=== PATIENT | male | born 1955 | race American Indian/Alaskan Native ===

== ENCOUNTER 2018-09-20 16:15 | Emergency (ER) | payer MEDICAID ==
[2018-09-20] MEDS ORDERED: Lidocaine 1% Inj (20ml) INFIL ONE (16:30)
[2018-09-20] MEDS ORDERED: Lidocaine Hydrochloride 5 ML INJ ONE (16:35)
[2018-09-20 16:41] VITALS: BP 163/83; PULSE 74; RESP 16; TEMP 97.3; O2SAT 99
--- NOTE | 2018-09-20 16:45 | C.PDOC ---
History Of Present Illness 63 year old male, with history of osteoarthritis, presents to ED complaining of bilateral knee pain and swelling for 2 weeks. Patient states his knees started to get swollen and developed more pain. Otherwise he denies redness or fever. Time Seen by Provider: 09/20/18 16:27 Chief Complaint (Nursing): Lower Extremity Problem/Injury History Per: Patient History/Exam Limitations: no limitations Onset/Duration Of Symptoms: Days Current Symptoms Are (Timing): Still Present Past Medical History Reviewed: Historical Data, Nursing Documentation, Vital Signs Vital Signs: Last Vital Signs Temp 97.3 F L 09/20/18 16:26 Pulse 74 09/20/18 16:26 Resp 16 09/20/18 16:26 BP 163/83 H 09/20/18 16:26 Pulse Ox 99 09/20/18 16:26 - Medical History PMH: HTN Surgical History: No Surg Hx Family History: States: No Known Family Hx - Social History Hx Tobacco Use: No Hx Alcohol Use: No Hx Substance Use: No - Immunization History Hx Tetanus Toxoid Vaccination: No Hx Influenza Vaccination: No Hx Pneumococcal Vaccination: No Review Of Systems Except As Marked, All Systems Reviewed And Found Negative. Constitutional: Negative for: Fever Musculoskeletal: Positive for: Other (bilateral knee pain and swelling) Physical Exam - Physical Exam Appears: Non-toxic, No Acute Distress Skin: Warm, Dry Head: Atraumatic, Normacephalic Eye(s): bilateral: Normal Inspection Oral Mucosa: Moist Neck: Supple Chest: Symmetrical Cardiovascular: Rhythm Regular, No Murmur Respiratory: Normal Breath Sounds, No Rales, No Rhonchi, No Wheezing Back: No Vertebral Tenderness Extremity: Normal ROM, Tenderness (diffuse tenderness to bilateral knees), No Deformity, Other (bilateral exudates on knees, no erythema) Extremity: Bilateral: Normal Color And Temperature, Normal ROM Neurological/Psych: Oriented x3, Normal Speech, Normal Motor, Normal Sensation, Normal Reflexes Gait: Steady ED Course And Treatment O2 Sat by Pulse Oximetry: 99 (RA) Pulse Ox Interpretation: Normal Procedure: Blank - Time Time Performed: 16:45 - Procedure Procedure:: Bilateral synovial fluid aspiration - Performed by: Performed by:: Attending physician - Topical: Local/Regional Anesthetic:: Lidocaine 1% - Patient Position Patient Position:: Supine - Location Location: Right, Left, Knee - Needle Size Needle Size:: 19 gauge needle - Description Discription of Procedure: 09/20/18 (20 cc of clear yellow synovial fluid aspirated from each knee and sent for analysis) - Result Result: Successful - Patient Tolerated Procedure Patient Tolerated Procedure:: Well (no bleeding) Medical Decision Making Medical Decision Making: Plan: --Labs Disposition Counseled Patient/Family Regarding: Diagnosis, Need For Followup, Rx Given - Disposition Referrals: Neal Christiansen MD [Staff Provider] - Disposition: HOME/ ROUTINE Disposition Time: 16:44 Condition: STABLE Prescriptions: Ibuprofen [Motrin] 600 mg PO TID #20 tab Methylprednisolone [Medrol Dose Pack (21 tabs)] 4 mg PO DAILY #21 mg Instructions: Osteoarthritis Forms: [facility] ([place]), General Discharge Instructions - POA Present On Arrival: None - Clinical Impression Clinical Impression: Degenerative arthritis of knee, bilateral - Scribe Statement The provider has reviewed the documentation as recorded by the Soniaibe Marcela Pruitt Provider Attestation: All medical record entries made by the Soniaibe were at my direction and personally dictated by me. I have reviewed the chart and agree that the record accurately reflects my personal performance of the history, physical exam, medical decision making, and the department course for this patient. I have also personally directed, reviewed, and agree with the discharge instructions and disposition.
[2018-09-20 16:49] LABS: FLUID TYPE SYNOVIAL FLUID
[2018-09-20 17:23] LABS: SF GROSS APPEARANCE CLOUDY (CLEAR)
[2018-09-20 20:09] LABS: SYNOVIAL FLUID MONO/MACROPHAGE 3 % (0-0)
== END 2018-09-20 16:29 | disposition home or self-care (01) ==
LOC: C.ER 16:15
DX: M17.0 Bilateral primary osteoarthritis of knee (principal)

== ENCOUNTER → 2019-02-23 | Outpatient (CLI) | payer MEDICAID | LOC: C.RADH 12:34 | DX: M20.12 Hallux valgus (acquired), left foot (principal) ==

== ENCOUNTER 2019-03-08 09:52 | Outpatient (CLI) | payer MEDICAID | END 2019-03-08 09:53 | disposition home or self-care (01) | LOC: C.LAB 09:52 ==